=== PATIENT | female | born 2000 | race Caucasian/White ===

== ENCOUNTER 2020-10-22 06:26 | Outpatient (REF) | payer OTHER, SELFPAY | END 2020-10-22 06:27 | disposition home or self-care (01) | LOC: HO.LAB 06:26 | PROVIDERS: PCP Internal Medicine; Visit Provider Internal Medicine | DX: Z20.828 Contact with and (suspected) exposure to other viral communicable diseases (principal) | CPT/HCPCS: C9803; U0003 ==

== ENCOUNTER 2020-12-23 17:04 | Outpatient (REF) | payer OTHER, SELFPAY ==
[2020-12-23 18:04] LABS: MANUAL DIFF FLAG NO
[2020-12-23 18:06] LABS: Basophils Percent Auto 0.5 % (0-2); Eosinophils Absolute Auto 0.1 X10*3/uL (0.0-0.4); Eosinophils Percent Auto 1.3 % (0-4); Hemoglobin 11.5 g/dl (12.0-16.0); Imm Gran Abs Auto 0.03 X10*3/uL (0.00-0.03); Imm Gran Pct Auto 0.4 % (0.0-0.4); Lymphocytes Absolute Auto 2.3 X10*3/uL (1.2-4.9); Lymphocytes Percent Auto 28.4 % (20-40); Mean Corpuscular HGB Conc 32.9 g/dl (31.0-35.0); Mean Corpuscular Hemoglobin 29.4 pg (27.0-33.0); Mean Corpuscular Volume 89.5 fL (80-98); Mean Platelet Volume 11.3 fL (9.4-12.3); Monocytes Absolute Auto 0.6 X10*3/uL (0.1-1.2); Monocytes Percent Auto 7.4 % (2-11); Neutrophils Absolute Auto 5.1 X10*3/uL (2.0-8.3); Platelet Count 302 X10*3/uL (160-400); Red Blood Count 3.91 X10*6/uL (4.20-5.50); Red Cell Distribution Width 12.6 % (11.0-16.0); White Blood Count 8.2 X10*3/uL (4.8-10.8)
[2020-12-23 18:32] LABS: Alanine Aminotransferase 32 U/L (0-31); Albumin Level 4.3 g/dL (3.5-5.0); Alkaline Phosphatase 86 U/L (39-117); Anion Gap 13 (12-20); Aspartate Amino Transferase 28 U/L (5-31); Bilirubin Total 0.2 mg/dL (0.0-1.0); Blood Urea Nitrogen 9 mg/dL (9-16); Carbon Dioxide 26 mmol/L (22-29); Chloride 106 mmol/L (96-108); Cholesterol 154 mg/dL; Estimated Glomerular Filt Rate > 60; Glucose Random 77 mg/dL (60-115); HDL Cholesterol 42 mg/dL; LDL Cholesterol Calculated 93 mg/dl; Potassium 4.6 mmol/L (3.3-5.1); Sodium 140 mmol/L (135-145); Total Protein 7.4 g/dL (6.5-8.0); Triglycerides 99 mg/dL
[2020-12-23 18:53] LABS: Free T4 (Free Thyroxine) 0.96 ng/dL (0.71-1.85); Thyroid Stimulating Hormone 1.08 uIU/mL (0.32-4.0)
[2020-12-23 19:09] LABS: Folate 14.7 ng/mL (> or = 4.0); Vitamin B12 452 pg/mL (200-900)
== END 2020-12-23 17:05 | disposition home or self-care (01) ==
LOC: HO.LAB 17:04
PROVIDERS: PCP Internal Medicine; Visit Provider Internal Medicine
DX: E66.9 Obesity, unspecified (principal); E78.00 Pure hypercholesterolemia, unspecified
CPT/HCPCS: 36415; 80053; 80061; 82607; 82746; 84439; 84443; 85025

== ENCOUNTER 2022-07-11 13:48 | Outpatient (REF) | payer OTHER, SELFPAY ==
[2022-07-11 14:02] LABS: MANUAL DIFF FLAG NO
[2022-07-11 14:23] LABS: Basophils Percent Auto 0.3 % (0-2); Eosinophils Absolute Auto 0.2 X10*3/uL (0.0-0.4); Eosinophils Percent Auto 1.8 % (0-4); Hematocrit 35.5 % (37.0-47.0); Hemoglobin 11.7 g/dl (12.0-16.0); Imm Gran Abs Auto 0.04 X10*3/uL (0.00-0.03); Imm Gran Pct Auto 0.4 % (0.0-0.4); Immature Retic Fraction 18.4 % (3.0-15.9); Lymphocytes Absolute Auto 2.3 X10*3/uL (1.2-4.9); Mean Corpuscular Hemoglobin 28.2 pg (27.0-33.0); Mean Corpuscular Volume 85.5 fL (80.0-98.0); Mean Platelet Volume 11.2 fL (9.4-12.3); Monocytes Absolute Auto 0.7 X10*3/uL (0.1-1.2); Monocytes Percent Auto 7.2 % (2-11); Neutrophils Absolute Auto 6.4 x10*3/uL (2.0-8.3); Neutrophils Percent Auto 66.3 % (45-73); Platelet Count 312 X10*3/uL (160-400); Red Blood Count 4.15 X10*6/uL (4.20-5.50); Red Cell Distribution Width 13.2 % (11.0-16.0); Retic HGB Equivalent 31.6 pg (30.0-35.0); Reticulocyte Percent 1.5 % (0.5-1.8); Reticulocytes Absolute 0.063 X10*6/uL (0.026-0.095); White Blood Count 9.6 X10*3/uL (4.8-10.8)
[2022-07-11 14:48] LABS: Alanine Aminotransferase 9 U/L (0-31); Albumin Level 3.7 g/dL (3.5-5.0); Alkaline Phosphatase 72 U/L (39-117); Anion Gap 15 (12-20); Aspartate Amino Transferase 10 U/L (5-31); Bilirubin Total 0.3 mg/dL (0.0-1.0); Blood Urea Nitrogen 5 mg/dL (9-16); Calcium 8.3 mg/dL (8.4-10.2); Carbon Dioxide 22 mmol/L (22-29); Chloride 111 mmol/L (96-108); Estimated Glomerular Filt Rate > 60; Glucose Random 85 mg/dL (60-115); Iron 43 mcg/dL (30-160); Percent Iron Saturation 10 % (15-50); Potassium 4.7 mmol/L (3.3-5.1); Sodium 143 mmol/L (135-145); Total Iron Binding Capacity 419 mcg/dL (228-428); Total Protein 6.9 g/dL (6.5-8.0); Unsaturated Iron Binding 376 ug/dL
[2022-07-11 15:09] LABS: Ferritin 7 ng/mL (10-122); Free T4 (Free Thyroxine) 1.01 ng/dL (0.71-1.85); Thyroid Stimulating Hormone 1.12 uIU/mL (0.32-4.0)
[2022-07-11 15:21] LABS: Vitamin B12 230 pg/mL (200-900)
== END 2022-07-11 13:49 | disposition home or self-care (01) ==
LOC: HO.LAB 13:48
PROVIDERS: PCP Internal Medicine; Visit Provider Internal Medicine
DX: D64.9 Anemia, unspecified (principal)
CPT/HCPCS: 36415; 80053; 82607; 82728; 82746; 83540; 84439; 84443; 85025; 85045

== ENCOUNTER 2023-05-08 16:13 | Outpatient (REF) | payer OTHER, SELFPAY ==
[2023-05-08 16:22] LABS: MANUAL DIFF FLAG NO
[2023-05-08 18:15] LABS: Basophils Percent Auto 0.4 % (0-2); Eosinophils Absolute Auto 0.1 X10*3/uL (0.0-0.4); Eosinophils Percent Auto 1.2 % (0-4); Hematocrit 39.1 % (37.0-47.0); Imm Gran Abs Auto 0.04 X10*3/uL (0.00-0.03); Imm Gran Pct Auto 0.5 % (0.0-0.4); Lymphocytes Absolute Auto 1.8 X10*3/uL (1.2-4.9); Lymphocytes Percent Auto 22.3 % (20-40); Mean Corpuscular HGB Conc 33.2 g/dl (31.0-35.0); Mean Corpuscular Hemoglobin 29.7 pg (27.0-33.0); Mean Corpuscular Volume 89.3 fL (80.0-98.0); Mean Platelet Volume 11.3 fL (9.4-12.3); Monocytes Absolute Auto 0.6 X10*3/uL (0.1-1.2); Monocytes Percent Auto 6.9 % (2-11); Neutrophils Absolute Auto 5.5 x10*3/uL (2.0-8.3); Neutrophils Percent Auto 68.7 % (45-73); Platelet Count 305 X10*3/uL (160-400); Red Blood Count 4.38 X10*6/uL (4.20-5.50); Red Cell Distribution Width 12.7 % (11.0-16.0); Retic HGB Equivalent 36.1 pg (30.0-35.0); Reticulocyte Percent 1.3 % (0.5-1.8); Reticulocytes Absolute 0.057 X10*6/uL (0.026-0.095); White Blood Count 8.1 X10*3/uL (4.8-10.8)
[2023-05-08 19:10] LABS: Alanine Aminotransferase 8 U/L (0-31); Albumin Level 4.1 g/dL (3.5-5.0); Alkaline Phosphatase 69 U/L (39-117); Anion Gap 16 (12-20); Aspartate Amino Transferase 14 U/L (5-31); Bilirubin Total 0.6 mg/dL (0.0-1.0); Blood Urea Nitrogen 6 mg/dL (9-16); Calcium 9.7 mg/dL (8.4-10.2); Carbon Dioxide 20 mmol/L (22-29); Chloride 107 mmol/L (96-108); Estimated Glomerular Filt Rate > 60; Glucose Random 89 mg/dL (60-115); Iron 136 mcg/dL (30-160); Percent Iron Saturation 42 % (15-50); Potassium 3.8 mmol/L (3.3-5.1); Sodium 139 mmol/L (135-145); Total Iron Binding Capacity 326 mcg/dL (228-428); Total Protein 7.6 g/dL (6.5-8.0); Unsaturated Iron Binding 190 ug/dL
[2023-05-08 19:24] LABS: Ferritin 21 ng/mL (10-122); Thyroid Stimulating Hormone 0.46 uIU/mL (0.32-4.0)
[2023-05-08 19:39] LABS: Folate 13.9 ng/mL (> or = 4.0); Vitamin B12 394 pg/mL (200-900)
== END 2023-05-08 16:14 | disposition home or self-care (01) ==
LOC: HO.LAB 16:13
PROVIDERS: PCP Internal Medicine; Visit Provider Internal Medicine
DX: D50.9 Iron deficiency anemia, unspecified (principal); J45.909 Unspecified asthma, uncomplicated
CPT/HCPCS: 36415; 80053; 82607; 82728; 82746; 83540; 84443; 85025; 85045

== ENCOUNTER → 2023-06-07 12:53 | Outpatient (BNV) | payer OTHER, SELFPAY | PROVIDERS: PCP Internal Medicine; Referring Provider Internal Medicine; Visit Provider Internal Medicine | DX: D50.9 Iron deficiency anemia, unspecified (principal) | CPT/HCPCS: 99203 ==

== ENCOUNTER 2023-06-07 13:23 | Outpatient (REF) | payer OTHER, SELFPAY ==
--- NOTE | ~2023-06-07 | XR_ITS ---
EXAMINATION: XR CHEST CLINICAL INFORMATION: Asthma COMPARISON: September 30, 2009 TECHNIQUE: 2 views of the chest were obtained. FINDINGS: No significant abnormality is noted involving the heart, lungs, mediastinum, bony thorax or soft tissues. XR/XR chest 2V IMPRESSION: No acute disease.
== END 2023-06-07 13:24 | disposition home or self-care (01) ==
LOC: HO.XRAY 13:23
PROVIDERS: PCP Internal Medicine; Visit Provider Internal Medicine
DX: J45.909 Unspecified asthma, uncomplicated (principal)
CPT/HCPCS: 71046

== ENCOUNTER → 2024-08-21 11:42 | Outpatient (BNVA) | payer OTHER, SELFPAY | PROVIDERS: PCP Internal Medicine; Visit Provider Internal Medicine | DX: Z00.00 Encounter for general adult medical examination without abnormal findings (principal); Z23 Encounter for immunization; E66.3 Overweight; D50.9 Iron deficiency anemia, unspecified; J45.909 Unspecified asthma, uncomplicated; F41.1 Generalized anxiety disorder; R55 Syncope and collapse; F90.9 Attention-deficit hyperactivity disorder, unspecified type | CPT/HCPCS: 90471; 90656; 96127; 99395 ==

== ENCOUNTER 2024-08-21 12:41 | Outpatient (AMB) | payer OTHER, SELFPAY ==
[2024-08-21 11:53] VITALS: BP 110/60; PULSE 110; O2SAT 98; BMI 27.0
--- NOTE | 2024-08-21 11:53 | MHC.PC.OV ---
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: No Allergies ibuprofen [From MOTRIN] Allergy (Severe, Verified 08/21/24 11:53) HIVES Medication List - Last Reconciled 08/21/24 by Chiquis Hutchinson MD albuterol sulfate 90 mcg/actuation (Proventil HFA) 2 puffs inhalation Q4-6H PRN albuterol sulfate 2.5 mg (3 mL) inhalation QID PRN atomoxetine 40 mg PO QAM buspirone 15 mg PO BID levonorgestrel-ethinyl estrad 0.15 mg-30 mcg (91) 1 tab PO DAILY Tobacco use date assessed: 08/21/24 Dental Screening Dental Screen Date: 08/21/24 Did you have a dental visit in the last 12 months?: No Did you have a dental problem in the last 6 months where you did not have access to dental care?: No Was dental information given to patient?: Patient has dentist HPI PE HPI Details 23-year-old overweight female with iron deficiency anemia asthma generalized anxiety disorder last seen in April last year patient is here for physical exam. Patient has been referred to Hematology Oncology and was seen last year due to syncopal episode. has had syncopeearly this year, states triggered by heat, ? exercises? eating most of the time 3x a day LMP 05/2024 [facility] Medical History (Updated 08/21/24 @ 12:46 by Chiquis Hutchinson MD) Obesity (BMI 30-39.9) Anemia Asthma Surgical History (Updated 06/07/23 @ 13:20 by Sis Dorman MD) H/O wisdom tooth extraction Family History Maternal Grandmother Myocardial infarct Paternal Grandfather CAD (coronary artery disease) Mother No problems noted. Father Alcohol abuse Sister No problems noted. Social History (Updated 08/21/24 @ 12:22 by Chiquis Hutchinson MD) Household Members: None Housing: Apartment Alcohol intake: current Comment: 3x a year 2 drinks Patient Tobacco Use Status: Never used Tobacco Years Smoked: pot smoking e-Cigarette/Vaping Use: Never Used Second Hand Smoke Exposure: No Substance Use Type: Marijuana service: No Current occupational status: employed Cognitive needs: No Hearing needs: No Vision needs: No Questionnaire PHQ-9 Over the last 2 weeks, how often have you been bothered by any of the following problems? 1. Little interest or pleasure in doing things: not at all 2. Feeling down, depressed, or hopeless: not at all 3. Trouble falling or staying asleep, or sleeping too much: not at all 4. Feeling tired or having little energy: not at all 5. Poor appetite or overeating: not at all 6. Feeling bad about yourself - or that you are a failure or have let yourself or your family down: not at all 7. Trouble concentrating on things, such as reading the newspaper or watching television: not at all 8. Moving or speaking so slowly that other people could have noticed. Or the opposite - being so fidgety or restless that you have been moving around a lot more than usual: not at all 9. Thoughts that you would be better off or of hurting yourself in some way: not at all Total score: 0 Depression Screening Interpretation: Negative Depression Screening Done: Yes Source: Developed by Drs. Davi Kaur, Lucy Peraza, Jonathan Beard and colleagues, with an educational eric from [employer]. Thrive Questionnaire Date Thrive assessed: 08/21/24 I am a: Patient What is your living situation today?: I have a steady place to live Within the past 12 months, did the food you bought not last and you didn't have the money to get more?: Never true Within the past 12 months, did you worry whether your food would run out before you got money to buy more?: Never true Do you have trouble paying for medicines?: No Do you have trouble getting transportation to medical appointments?: No Do you have trouble paying your heating and electricity bill?: No Do you have trouble taking care of your child, family member or friend?: No Do you have trouble with day-to-day activities such as bathing, preparing meals, shopping, managing finances, etc.?: No Are you currently unemployed and looking for a job?: No Are you interested in more education?: No THRIVE Score: 0 AUDIT C Alcohol Use Questionnaire (AUDIT-C) 1. How often do you have a drink containing alcohol?: Never 3. How often do you have six or more drinks on one occasion?: Never Total Score: 0 ADEN-7 AMB Questionnaire ADEN-7 Date ADEN - 7 assessed: 08/21/24 Feeling nervous, anxious, or on edge: 1 = Several days Not being able to stop or control worryin = Not at all Worrying too much about different things: 0 = Not at all Trouble relaxin = Not at all Being so restless that it is hard to sit still: 0 = Not at all Becoming easily annoyed or irritable: 0 = Not at all Feeling afraid as if something awful might happen: 0 = Not at all Total ADEN-7 score (0-4 normal; 5-9 mild; 10-14 moderate; 15-21 severe): 1 Source: Developed by Drs. Davi Kaur, Lucy Peraza, Jonathan Beard and colleagues, with an educational eric from [employer]. Review of Systems Const Denies poor appetite and Denies weakness Eyes Denies no additional complaints ENT Reports Normal hearing present, Denies dizziness, Denies nasal congestion, Denies tinnitus and Denies sore throat Card Denies chest pain, Denies syncope, Denies rapid heart rate and Denies dyspnea Resp Denies cough and Denies dyspnea GI Denies change in stool character, Reports constipation, Denies diarrhea, Denies nausea and Denies vomiting Denies urinary frequency, Denies difficulty voiding and Denies dysuria Neuro Reports Normal hearing present, Denies confusion, Denies dizziness, Denies syncope and Denies weakness Psych Denies confusion Physical exam (Primary Care) Vital Signs: Last Vital Signs Pulse 110 H 08/21/24 11:53 BP 110/60 08/21/24 11:53 Pulse Ox 98 08/21/24 11:53 Oxygen Delivery Method Room Air 08/21/24 11:53 BMI result Body Mass Index 27.0 Tobacco/Smoking Status: Tobacco use Status Tobacco use date assessed 08/21/24 08/21/24 11:54 Patient Tobacco Use Status Never used Tobacco 08/21/24 11:54 e-Cigarette/Vaping Use Never Used 08/21/24 11:54 PHQ-9: PHQ-9 Score PHQ-9: Total score 0 08/21/24 12:00 Depression Screening Interpretation: Negative Thrive Assessment: Date of Thrive Assessment Date Thrive assessed 08/21/24 08/21/24 12:00 Const General: No confusion Orientation/consciousness: No confusion HENMT Head: Yes normocephalic Ears: external ears normal and TM's normal bilaterally Face and sinus: Yes normal facial exam Mouth: moist mucous membranes Throat: Yes tonsils normal Eyes Conjunctivae: conjunctivae normal Pupils: Equal, round and reactive pupils present and Pupil accommodation reflex normal Direct Ophthalmoscopy: normal light reflex Neck Neck: No lymphadenopathy Thyroid: Thyroid normal Chest Chest palpation & inspection: normal inspection of the chest Resp Effort & Inspection: normal respiratory effort and no audible wheezes Auscultation: clear to auscultation bilaterally, no crackles, no wheezes and lung sounds not diminished Cardio Rate: regular rate Rhythm: regular rhythm Peripheral pulses: radial pulses present and dorsalis pedis present GI Palpation (GI): no masses Auscultation: normal bowel sounds and normoactive bowel sounds Rectal Exam - Female: deferred Skin General skin exam: no rashes or lesions noted Rashes: no rashes Neuro General: No confusion Cranial nerves: Yes Equal, round and reactive pupils present and Yes Normal hearing present Cognition (Neuro): normal cognition Gait exam (Neuro): Normal gait present Motor exam (neuro): 5/5 motor strength present throughout Deep tendon reflexes (DTR's): Right brachioradialis reflex intensity grade: 2+, Left brachioradialis reflex intensity grade: 2+, Right patellar reflex intensity grade: 2+ and Left patellar reflex intensity grade: 2+ Extrem General: No edema Office Procedures Flu Questionnaire Does the patient have a severe egg allergy?: No Does the patient have severe life threatening allergies?: No Does the patient have a fever or illness today?: No Has the patient ever had Guillain-[place] Syndrome?: No Has the patient ever had any past reaction to a flu shot?: No Immunizations Fluarix Triv [id number] (PF) 45 mcg (15 mcg x 3)/0.5 mL IM syringe Performing Provider: Chiquis Hutchinson MD [facility] Administered by: JACOB Aguilar on 10/10/24 12:06 Dose Route Admin Location Dispensed Lot Number Expiration Date NDC Family Program Specialist 0.5 mL IM Left Deltoid 0.5 mL [id number] 05/11/25 [id number] [employer] VIS Given Date VIS Provided VIS Publication Date 08/21/24 Single Vaccine 21 Eligibility Eligibility Date Funding Source Not [facility] Eligible 08/21/24 Private Coding Level of Care Code Est Pt Prev Care 18-39y([id number]) Diagnoses Annual physical exam Z00.00 Overweight (BMI 25.0-29.9) E66.3 Iron deficiency anemia, unspecified iron deficiency anemia type D50.9 Iron deficiency anemia type: unspecified iron deficiency Mild intermittent asthma without complication J45.20 Asthma severity: mild Asthma persistence: intermittent Asthma complication type: uncomplicated Generalized anxiety disorder F41.1 Near syncope R55 Attention deficit hyperactivity disorder (ADHD), unspecified ADHD type F90.9 Attention deficit-hyperactivity disorder type: unspecified Assessment & Plan Assessment & Plan (1) Annual physical exam: Code(s): Z00.00 - Encounter for general adult medical examination without abnormal findings Category: Medical Plan: Patient is advised to eat healthy, keep well hydrated, keep active and have adequate sleep. (2) Overweight (BMI 25.0-29.9): Code(s): E66.3 - Overweight Category: Medical Plan: Continue with diet and exercise (3) Iron deficiency anemia: Code(s): D50.9 - Iron deficiency anemia, unspecified Category: Medical Qualifiers: Iron deficiency anemia type: unspecified iron deficiency Qualified Code(s): D50.9 - Iron deficiency anemia, unspecified Plan: Resolved (4) Asthma: Code(s): J45.909 - Unspecified asthma, uncomplicated Category: Medical Qualifiers: Asthma severity: mild Asthma persistence: intermittent Asthma complication type: uncomplicated Qualified Code(s): J45.20 - Mild intermittent asthma, uncomplicated Plan: Continue with albuterol inhaler as needed (5) Generalized anxiety disorder: Comment: [facility] prison classification counselor Code(s): F41.1 - Generalized anxiety disorder Category: Medical Plan: Continue with counseling and therapy (6) Near syncope: Code(s): R55 - Syncope and collapse Category: Medical Plan: Patient had some anemia before but this has resolved and now continues to have some near syncopal episodes as well as syncopal episodes. (7) ADHD: Comment: Dr. Hood in [place], [place] Code(s): F90.9 - Attention-deficit hyperactivity disorder, unspecified type Category: Medical Qualifiers: Attention deficit-hyperactivity disorder type: unspecified Qualified Code(s): F90.9 - Attention-deficit hyperactivity disorder, unspecified type Plan: Patient is being followed up by Psychiatry and has been prescribed medications Orders: Orders Influenza [id number] Immunization Today Z23 - Encounter for immunization Complete Blood Count Auto Diff Today R55 - Syncope and collapse Thyroid Stimulating Hormone Today R55 - Syncope and collapse IRON PROFILE Today R55 - Syncope and collapse Vitamin B12 and Folate Today R55 - Syncope and collapse Vitamin D 25-OH Total Today R55 - Syncope and collapse Comprehensive Met. Panel Today R55 - Syncope and collapse Free T4 (Free Thyroxine) Today R55 - Syncope and collapse Lipid Panel Today E78.00 - Pure hypercholesterolemia, unspecified, R55 - Syncope and collapse Ferritin Today R55 - Syncope and collapse UA CC w/rflx Micro + Cult Today R30.0 - Dysuria, R55 - Syncope and collapse EEG electroencephalogram Today R55 - Syncope and collapse Referrals Neurology Referral R55 - Syncope and collapse
== END 2024-08-21 12:45 | disposition home or self-care (01) ==
PROVIDERS: PCP Internal Medicine; Visit Provider Internal Medicine
DX: Z00.00 Encounter for general adult medical examination without abnormal findings (principal); E66.3 Overweight; D50.9 Iron deficiency anemia, unspecified; J45.20 Mild intermittent asthma, uncomplicated; F41.1 Generalized anxiety disorder; R55 Syncope and collapse; F90.9 Attention-deficit hyperactivity disorder, unspecified type; Z23 Encounter for immunization

== ENCOUNTER 2024-10-02 07:56 | Outpatient (REF) | payer OTHER, SELFPAY ==
--- NOTE | 2024-10-02 07:58 | EEG_ITS ---
This is a 16-channel EEG with an EKG lead. The patient is reported awake during the tracing. Background EEG rhythm is 8-10 hertz, 5-20 microvolt posteriorly and lower amplitude fast anteriorly. Photic stimulation does not produce any significant driving. Some lead and muscle artifacts are noted. Hyperventilation is not performed. Cardiac lead does not reveal any significant abnormality. No sharp wave spikes or paroxysmal tendency noted. IMPRESSION: No significant abnormality noted on this EEG. MD SIERRA Bowman/DONALDO / [id number]
[2024-10-02 09:28] LABS: MANUAL DIFF FLAG NO
[2024-10-02 09:49] LABS: Basophils Percent Auto 0.3 % (0-2); Eosinophils Absolute Auto 0.1 X10*3/uL (0.0-0.4); Eosinophils Percent Auto 2.1 % (0-4); Hematocrit 36.4 % (37.0-47.0); Hemoglobin 12.6 g/dl (12.0-16.0); Imm Gran Abs Auto 0.03 X10*3/uL (0.00-0.03); Imm Gran Pct Auto 0.4 % (0.0-0.4); Lymphocytes Absolute Auto 2.3 X10*3/uL (1.2-4.9); Lymphocytes Percent Auto 33.7 % (20-40); Mean Corpuscular HGB Conc 34.6 g/dl (31.0-35.0); Mean Corpuscular Hemoglobin 30.6 pg (27.0-33.0); Mean Corpuscular Volume 88.3 fL (80.0-98.0); Mean Platelet Volume 9.9 fL (9.4-12.3); Monocytes Absolute Auto 0.3 X10*3/uL (0.1-1.2); Monocytes Percent Auto 4.6 % (2-11); Neutrophils Percent Auto 58.9 % (45-73); Platelet Count 309 X10*3/uL (160-400); Red Blood Count 4.12 X10*6/uL (4.20-5.50); Red Cell Distribution Width 12.4 % (11.0-16.0); White Blood Count 6.8 X10*3/uL (4.8-10.8)
[2024-10-02 10:12] LABS: Appearance Urine Clear; Color Urine Yellow; Glucose Urine UA Negative (Negative); Leukocyte Esterase Urine Small (1+) (Negative); Nitrite Urine Negative (Negative); PH 5.5 (5.0-9.0); UMIC TRIGGER UACC YES; Urine Blood Negative (Negative); Urine Ketones Negative (Negative); Urine Protein Negative (Neg-Trace)
[2024-10-02 10:32] LABS: Bacteria Urine None Seen (None Seen); Hyaline Casts Urine 0-2 /LPF (0-2); RBC Urine 0-2 /HPF (0-2); Squamous Epithelial Cell Urine 0-2 /HPF (0-2); UACC Culture Trigger YES
[2024-10-02 10:36] LABS: Alanine Aminotransferase 22 U/L (0-31); Albumin Level 3.8 g/dL (3.5-5.0); Alkaline Phosphatase 59 U/L (39-117); Anion Gap 11 (12-20); Aspartate Amino Transferase 30 U/L (5-31); Bilirubin Total 0.3 mg/dL (0.0-1.0); Blood Urea Nitrogen 6 mg/dL (9-16); Carbon Dioxide 24 mmol/L (22-29); Chloride 106 mmol/L (96-108); Cholesterol 157 mg/dL (<200); Estimated Glomerular Filt Rate > 60; Glucose Random 87 mg/dL (60-115); HDL Cholesterol 34 mg/dL (>40); Iron 118 mcg/dL (30-160); LDL Cholesterol Calculated 108 mg/dL (<100); Percent Iron Saturation 40 % (15-50); Sodium 137 mmol/L (135-145); Total Iron Binding Capacity 294 mcg/dL (228-428); Total Protein 7.1 g/dL (6.5-8.0); Triglycerides 75 mg/dL (<150); Unsaturated Iron Binding 176 ug/dL
[2024-10-02 10:39] LABS: Ferritin 27 ng/mL (10-122); Free T4 (Free Thyroxine) 1.11 ng/dL (0.71-1.85); Thyroid Stimulating Hormone 0.96 uIU/mL (0.32-4.0)
[2024-10-02 10:55] LABS: Folate 11.1 ng/mL (> or = 4.0); Vitamin B12 333 pg/mL (200-900)
== END 2024-10-02 07:57 | disposition home or self-care (01) ==
LOC: HO.NEURO 07:56
PROVIDERS: PCP Internal Medicine; Visit Provider Internal Medicine
DX: R55 Syncope and collapse (principal); E78.00 Pure hypercholesterolemia, unspecified
CPT/HCPCS: 36415; 80053; 80061; 81001; 81003; 82306; 82607; 82728; 82746; 83540; 84439; 84443; 85025; 87086; 95816

== ENCOUNTER 2024-12-10 09:26 | Outpatient (AMB) | payer OTHER, SELFPAY ==
--- NOTE | 2024-12-10 09:33 | A.OFFPC_ITS ---
Vital Signs 3 12/10/24 09:35 Height 4 ft 10 in Weight 131 lb 8 oz BMI 27.5 BP 110/66 Blood Pressure Location Lt brachial Position Sitting Pulse 121 H Pulse Source Pulse Oximeter Temp 96.9 F Temp Source Skin Pulse Oximetry (%) 100 Oxygen Delivery Method Room Air Intake Visit Reasons: 3 month f/u Intake Note: Patient is here to follow up on ADHD, Asthma. Sales Representative Printing Paper Required: No Home Visits Nurse: Not Required per policy Accompanied by: Self / Same As Patient Allergies ibuprofen [From MOTRIN] Allergy (Severe, Verified 12/10/24 09:34) HIVES Medication List - Last Reconciled 12/10/24 by Janine Pearson PA-C albuterol sulfate 2.5 mg (3 mL) inhalation QID PRN albuterol sulfate 90 mcg/actuation 2 puffs inhalation Q4-6H PRN atomoxetine 40 mg PO QAM buspirone 15 mg PO BID levonorgestrel-ethinyl estrad 0.15 mg-30 mcg (91) 1 tab PO DAILY Tobacco use date assessed: 12/10/24 Dental Screening Dental Screen Date: 12/10/24 Did you have a dental visit in the last 12 months?: No Did you have a dental problem in the last 6 months where you did not have access to dental care?: No Was dental information given to patient?: Patient has dentist HPI 3 month f/u 2 HPI0 Details 23-year-old female with past medical his tory of iron-deficiency anemia, asthma, generalized anxiety disorder last seen 08/2024 coming in for follow up. In review of the notes, patient was being evaluated for syncopal episode had EEG completed which was negative and was referred to Neurology for presyncopal episodes. Patient tells us today she saw her neurologist in September was advised to have a 24 hour EEG completed and follow up afterwards. Since her last appointment she has not had any further episodes of syncope or presyncopal episodes. She feels her ADHD she and asthma has been well managed. She does have a concern of moles on the side of her neck that has been growing over the last several months. She also has a lesion on the back of her right calf that is not painful has not been growing but has been present since August and is occasionally itchy. [facility] Medical History (Updated 12/10/24 @ 09:53 by Janine Pearson PA-C) Obesity (BMI 30-39.9) Anemia Asthma Surgical History H/O wisdom tooth extraction Family History Maternal Grandmother Myocardial infarct Paternal Grandfather CAD (coronary artery disease) Mother No problems noted. Father Alcohol abuse Sister No problems noted. Social History Household Members: None Housing: Apartment Alcohol intake: current Comment: 3x a year 2 drinks Patient Tobacco Use Status: Never used Tobacco Years Smoked: pot smoking e-Cigarette/Vaping Use: Never Used Second Hand Smoke Exposure: No Substance Use Type: Marijuana service: No Current occupational status: employed Cognitive needs: No Hearing needs: No Vision needs: No Questionnaire PHQ-9 Over the last 2 weeks, how often have you been bothered by any of the following problems? 1. Little interest or pleasure in doing things: not at all 2. Feeling down, depressed, or hopeless: not at all 3. Trouble falling or staying asleep, or sleeping too much: not at all 4. Feeling tired or having little energy: not at all 5. Poor appetite or overeating: not at all 6. Feeling bad about yourself - or that you are a failure or have let yourself or your family down: not at all 7. Trouble concentrating on things, such as reading the newspaper or watching television: not at all 8. Moving or speaking so slowly that other people could have noticed. Or the opposite - being so fidgety or restless that you have been moving around a lot more than usual: not at all 9. Thoughts that you would be better off or of hurting yourself in some way: not at all Total score: 0 Depression Screening Interpretation: Negative Depression Screening Done: Yes Source: Developed by Drs. Davi Kaur, Lucy Peraza, Jonathan Beard and colleagues, with an educational eric from [employer]. Thrive Questionnaire Date Thrive assessed: 12/10/24 I am a: Patient What is your living situation today?: I have a steady place to live Within the past 12 months, did the food you bought not last and you didn't have the money to get more?: Never true Within the past 12 months, did you worry whether your food would run out before you got money to buy more?: Never true Do you have trouble paying for medicines?: No Do you have trouble getting transportation to medical appointments?: No Do you have trouble paying your heating and electricity bill?: No Do you have trouble taking care of your child, family member or friend?: No Do you have trouble with day-to-day activities such as bathing, preparing meals, shopping, managing finances, etc.?: No Are you currently unemployed and looking for a job?: No Are you interested in more education?: No Please select the resources that you would like help with: None Currently or been in a relationship where the following occur: No concerns reported THRIVE Score: 0 AUDIT C Alcohol Use Questionnaire (AUDIT-C) 1. How often do you have a drink containing alcohol?: Never Total Score: 0 ADEN-7 AMB Questionnaire ADEN-7 Date ADEN - 7 assessed: 12/10/24 Feeling nervous, anxious, or on edge: 1 = Several days (has Therapist) Not being able to stop or control worryin = Not at all Worrying too much about different things: 0 = Not at all Trouble relaxin = Not at all Being so restless that it is hard to sit still: 0 = Not at all Becoming easily annoyed or irritable: 0 = Not at all Feeling afraid as if something awful might happen: 0 = Not at all Total ADEN-7 score (0-4 normal; 5-9 mild; 10-14 moderate; 15-21 severe): 1 Source: Developed by Drs. Davi Kaur, Lucy Peraza, Jonathan Beard and colleagues, with an educational eric from [employer]. Review of Systems Const Denies body aches, Denies chills and Denies fever(s) Eyes Reports no additional complaints ENT Reports no additional complaints and Denies dizziness Card Denies chest pain, Denies syncope, Denies irregular heart rhythm, Denies leg edema, Reports lightheadedness (Occasionally) and Denies dyspnea Resp Denies dyspnea GI Reports no additional complaints Reports no additional complaints Musc Reports no additional complaints Skin/Breast Reports as per HPI Neuro Denies dizziness and Denies syncope Physical exam (Primary Care) Tobacco/Smoking Status: Tobacco use Status Tobacco use date assessed 08/21/24 08/21/24 11:54 Patient Tobacco Use Status Never used Tobacco 08/21/24 12:22 e-Cigarette/Vaping Use Never Used 08/21/24 12:22 Depression Screening Interpretation: Negative Thrive Assessment: Date of Thrive Assessment Date Thrive assessed 08/21/24 08/21/24 12:00 Currently or been in a relationship where the following occur: No concerns reported Const General: cooperative, healthy appearing, comfortable and no acute distress Orientation/consciousness: patient oriented x3 HENMT Head: Yes normocephalic Ears: hearing grossly normal bilaterally General nose exam: Normal external nose present Eyes General: appearance normal, both eyes and all related structures Conjunctivae: conjunctivae normal Neck Neck: Yes full ROM and Yes no lymphadenopathy Resp Effort & Inspection: normal respiratory effort Auscultation: clear to auscultation bilaterally, no crackles, no rales, no rhonchi and no wheezes Cardio Rate: regular rate Rhythm: regular rhythm Skin General skin exam: no rashes or lesions noted Full body images: 2 1. Erythematous raised lesion without underlying erythema, warmth or swelling. 2. Multiple, raised, small atypical nevi Neuro General: patient oriented x3 Gait exam (Neuro): Normal gait present Extrem General: Yes normal to inspection, Yes full ROM and No edema Psych Affect: normal affect Attitude: cooperative Insight: Good insight present (Psych) Judgement: Good judgement present (Psych) Coding Level of Care Code Est Pt Level 3 (91327) Diagnoses Atypical nevi D22.9 Attention deficit hyperactivity disorder (ADHD), unspecified ADHD type F90.9 Attention deficit-hyperactivity disorder type: unspecified Overweight (BMI 25.0-29.9) E66.3 Mild intermittent asthma without complication J45.20 Asthma severity: mild Asthma persistence: intermittent Asthma complication type: uncomplicated Near syncope R55 Assessment & Plan Assessment & Plan (1) Atypical nevi: Code(s): D22.9 - Melanocytic nevi, unspecified Category: Medical Plan: Patient has a presence of atypical nevi that have been growing on the left side of the neck and on the back of the calf. Recommend Dermatology referral for further evaluation and possible biopsy. (2) ADHD: Comment: Dr. Hood in [place], [place] Code(s): F90.9 - Attention-deficit hyperactivity disorder, unspecified type Category: Medical Qualifiers: Attention deficit-hyperactivity disorder type: unspecified Qualified Code(s): F90.9 - Attention-deficit hyperactivity disorder, unspecified type Plan: Feels her ADHD is well managed with the atomoxetine continue to follow with psychiatrist (3) Overweight (BMI 25.0-29.9): Code(s): E66.3 - Overweight Category: Medical Plan: Healthy diet and regular exercise is encouraged. (4) Asthma: Code(s): J45.909 - Unspecified asthma, uncomplicated Category: Medical Qualifiers: Asthma severity: mild Asthma persistence: intermittent Asthma complication type: uncomplicated Qualified Code(s): J45.20 - Mild intermittent asthma, uncomplicated Plan: Asthma currently controlled on present medications. Continue on albuterol as needed. Avoid triggers such as allergies. (5) Near syncope: Code(s): R55 - Syncope and collapse Category: Medical Plan: Patient currently following with Neurology advised to undergo 24 hour EEG with a follow up afterwards. Advised patient to follow up in 3 months in our office to review the neurology notes in the EEG. Patient has not any symptoms in the last several months and she will continue to monitor her symptoms. Plan This note was constructed using voice recognition software. While every effort has been made to ensure accuracy and clerk secretary, still areas may have been included sometimes these areas may affect the content or meeting of the given symptoms. Total time spent caring for the patient today was 20 minutes. This includes time spent before the visit reviewing the chart, time spent during the visit, and time spent after the visit and documentation. Orders: Referrals 2 Dermatology Referral D22.9 - Melanocytic nevi, unspecified Medications: New 2 cholecalciferol (vitamin D3) 25 mcg PO DAILY 90 caps 3RF
[2024-12-10 09:35] VITALS: BP 110/66; PULSE 121; TEMP 36.1; O2SAT 100; BMI 27.5
--- OUTSIDE RECORDS SUMMARY | 2024-12-10 10:53 | XMS_ITS | Clinical Summary ---
Author Organization [facility] Address [address] [place] [address] Care Team Providers Care Medical Specialist Name Role Phone Chiquis Vincent MD Primary Care Provider [phone] Encounters Date Type Department Care Team Description 10/27/2024 [facility] Neurodiagnostic [address] [place] [phone] Rubi Rojas MD Epilepsy, unspecified, not intractable, without status epilepticus (CMS/HCC) 10/24/2024 [facility]diagn[facility] [address] [place] [phone] Rubi Rojas MD Epilepsy, unspecified, not intractable, without status epilepticus (CMS/HCC) 10/23/2024 [facility] [address] [place] [phone] Rubi Rojas MD Epilepsy, unspecified, not intractable, without status epilepticus (CMS/HCC) from Last 3 Months Surgical History Surgery Date Site/Laterality Comments WISDOM TOOTH EXTRACTION PROCEDURE: HISTORICAL WISDOM TEETH EXTRACTION Medical History Medical History Date Comments Dysmenorrhea DX:Dysmenorrhea Mild intermittent asthma, uncomplicated DX:Mild intermittent asthma, uncomplicated Family History Medical History Relation Name Comments Breast cancer Neg Hx Ovarian cancer Neg Hx Uterine cancer Neg Hx Relation Name Status Comments Father Alive Maternal Grandfather Alive Maternal Grandmother Alive Mother Alive Paternal Grandfather Paternal Grandmother Alive Sister Alive Social History Tobacco Use Types Packs/Day Years Used Date Smoking Tobacco: Never Smokeless Tobacco: Never Alcohol Use Standard Drinks/Week Comments Never 0 (1 standard drink = 0.6 oz pur e alcohol) Sex and Gender Information Value Date Recorded Sex Assigned at Not on file Gender Identity Not on file Sexual Orientation Not on file Obstetrics History Last Filed Vital Signs Vital Sign Reading Time Taken Comments Blood Pressure 125/88 12/06/2023 1:32 PM EST Pulse 90 12/06/2023 1:32 PM EST Temperature - - Respiratory Rate - - Oxygen Saturation - - Inhaled Oxygen Concentration - - Weight 64.1 kg (141 lb 6.4 oz) 12/06/2023 1:32 P M EST Height 147.3 cm (4' 10 ) 12/06/2023 1:32 PM EST Body Mass Index 29.55 12/06/2023 1:32 PM EST Plan of Treatment Upcoming Encounters Date Type Department Care Team (Late st Contact Info) Description 01/21/2025 10:00 AM EDT Appointment [facility] Neurodiagnostic [address] [place] [phone] 01/22/2025 10:00 AM EDT Appointment [facility] Neurodiagnostic [address] [place] [phone] 01/23/2025 10:00 AM EDT Appointment [facility]diagn[facility] [address] [place] [phone] Health Maintenance Due Date Last Done Comments Gonorrhea/Chlamydia Screening 2000 HPV Vaccines (1 - 3-dose series) 2015 DTaP,Tdap,and Td Vaccines (1 - Tdap) 2019 Hepatitis B Vaccines (1 of 3 - 19+ 3-dose series) 2019 Depression Screening 10/22/2022 HIV Screening 10/22/2022 Hepatitis C Screening 10/22/2022 Social Influencers of Health Screening 10/22/2022 COVID-19 Vaccine ( - 2023-2 5 season) 2024 Influenza Vaccine (#1) 2024 Cervical Cancer Screening: P ap Smear 12/06/2026 12/06/2023 HIB Vaccines Aged Out No longer eligi ble based on patient's age to complete this topic Hepatitis A Vaccines Aged Out No long er eligible based on patient's age to complete this topic IPV Vaccines Aged Out No longer eligi ble based on patient's age to complete this topic MMR Vaccines Aged Out No longer eligi ble based on patient's age to complete this topic Meningococcal ACWY Vaccine Aged Out N o longer eligible based on patient's age to complete this topic Pneumococcal Vaccine: Pediat rics (0 to 5 Years) and At-Risk Patients (6 to 64 Years) Aged Out No longer eligi ble based on patient's age to complete this topic RSV Immunization Patients Un jamee 20 months Aged Out No longer eligible b ased on patient's age to complete this topic Varicella Vaccines Aged Out No longer eligible based on patient's age to complete this topic Procedures Procedure Name Priority Date/Time Associated Diagnosis Comments PAP SMEAR Routine 12/06/2023 from Last 3 Months or Most Recently Relevant to Health Maintenance Results * Pap smear (12/06/2023) 12/06/2023 Narrative HISTORICAL TESTING LAB RESULTING AGENCY - 12/14/2023 4:45 PM EST [id number] THINPREP PAP, IMAGED: NEGATIVE FOR SQUAMOUS INTRAEPITHELIAL LESION AND MALIGNANCY . KENDRA WALKER(ASCP) (CASE ELECTRONICALLY SIGNED 12 14 2023) ADEQUACY: SATISFACTORY ENDOCERVICAL/TRANSFORMATION ZONE COMPONENT ABSENT. SOURCE: THINPREP PAP HPV IF ASCUS, CERVICAL, IMAGED CLINICAL INFORMATION: HPV IF DIAGNOSIS OF ASCUS. [Z01.419] Nina Juan CHASE LAB CYTOLOGY ORDERAB LES HISTORICAL TESTING LAB RESULTING AGENCY from Last 3 Months or Most Recently Relevant to Health Maintenance Care Teams Medical Specialist Relationship Specialty Start Date End Date Chiquis Vincent MD [address] [place] [address] [address] [facility] [place] [address] PCP - General Internal Medicine 08/16/21
== END 2024-12-10 10:05 | disposition home or self-care (01) ==
PROVIDERS: PCP Internal Medicine
DX: D22.9 Melanocytic nevi, unspecified (principal); F90.9 Attention-deficit hyperactivity disorder, unspecified type; E66.3 Overweight; J45.20 Mild intermittent asthma, uncomplicated; R55 Syncope and collapse

== ENCOUNTER → 2024-12-10 09:26 | Outpatient (BNVA) | payer OTHER, SELFPAY | PROVIDERS: PCP Internal Medicine | DX: D22.9 Melanocytic nevi, unspecified (principal); F90.9 Attention-deficit hyperactivity disorder, unspecified type; E66.3 Overweight; J45.20 Mild intermittent asthma, uncomplicated; R55 Syncope and collapse | CPT/HCPCS: 99212 ==

== ENCOUNTER 2025-03-11 10:07 | Outpatient (AMB) | payer OTHER, SELFPAY ==
--- NOTE | 2025-03-11 10:10 | MHC.PC.OV ---
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 Billiard Table Required: No Accompanied by: Self / Same As Patient Allergies ibuprofen [From MOTRIN] Allergy (Severe, Verified 03/11/25 10:28) HIVES Medication List - Last Reconciled 03/11/25 by Janine Pearson PA-C albuterol sulfate 2.5 mg (3 mL) inhalation QID PRN albuterol sulfate 90 mcg/actuation 2 puffs inhalation Q4-6H PRN atomoxetine 40 mg PO QAM buspirone 15 mg PO BID cholecalciferol (vitamin D3) 25 mcg PO DAILY levonorgestrel-ethinyl estrad 0.15 mg-30 mcg (91) 1 tab PO DAILY Tobacco use date assessed: 12/10/24 Dental Screening Dental Screen Date: 12/10/24 HPI 3 Month F/U HPI Details 24-year-old female with past medical history of iron-deficiency anemia, asthma, generalized anxiety disorder last seen 11/2024 coming in for follow up. She was seen by Neurology 10/2025 for dizziness and blurred vision recommended 48 hour ambulatory EEG and appointment to follow up. Patient completed 48 hour ambulatory EEG revealed no significant abnormality. Presenting with follow-up on neurological concerns and management of ADHD. She experiences episodes characterized by dizziness, weakness, vision changes, and other vasovagal-like symptoms occurring infrequently (1-3 times a year); last episode noted in August or September. No recent episodes since the last visit. Neurologist previously consulted; no daily medication was recommended due to infrequency; last EEG results were non-significant. She also mentions over the last week having increased urinary hesitancy without any other symptoms. [facility] Medical History Obesity (BMI 30-39.9) Anemia Asthma Surgical History H/O wisdom tooth extraction Family History Maternal Grandmother Myocardial infarct Paternal Grandfather CAD (coronary artery disease) Mother No problems noted. Father Alcohol abuse Sister No problems noted. Social History Household Members: None Housing: Apartment Alcohol intake: current Comment: 3x a year 2 drinks Patient Tobacco Use Status: Never used Tobacco Years Smoked: pot smoking e-Cigarette/Vaping Use: Never Used Second Hand Smoke Exposure: No Substance Use Type: Marijuana service: No Current occupational status: employed Cognitive needs: No Hearing needs: No Vision needs: No Questionnaire Thrive Questionnaire Date Thrive assessed: 12/10/24 I am a: Patient What is your living situation today?: I have a steady place to live Within the past 12 months, did the food you bought not last and you didn't have the money to get more?: Never true Within the past 12 months, did you worry whether your food would run out before you got money to buy more?: Never true Do you have trouble paying for medicines?: No Do you have trouble getting transportation to medical appointments?: No Do you have trouble paying your heating and electricity bill?: No Do you have trouble taking care of your child, family member or friend?: No Do you have trouble with day-to-day activities such as bathing, preparing meals, shopping, managing finances, etc.?: No Are you currently unemployed and looking for a job?: No Are you interested in more education?: No Please select the resources that you would like help with: None Currently or been in a relationship where the following occur: No concerns reported THRIVE Score: 0 ADEN-7 AMB Questionnaire ADEN-7 Date ADEN - 7 assessed: 12/10/24 Feeling nervous, anxious, or on edge: 1 = Several days (has Therapist) Not being able to stop or control worryin = Not at all Worrying too much about different things: 0 = Not at all Trouble relaxin = Not at all Being so restless that it is hard to sit still: 0 = Not at all Becoming easily annoyed or irritable: 0 = Not at all Feeling afraid as if something awful might happen: 0 = Not at all Total ADEN-7 score (0-4 normal; 5-9 mild; 10-14 moderate; 15-21 severe): 1 Source: Developed by Drs. Davi Kaur, Lucy Peraza, Jonathan Beard and colleagues, with an educational eric from [employer]. Review of Systems Const Denies body aches, Denies chills, Denies fever(s), Denies headache(s) and Denies poor appetite Eyes Reports no additional complaints ENT Denies dizziness and Denies headache(s) Card Denies chest pain, Denies syncope, Denies lightheadedness and Denies dyspnea Resp Denies dyspnea GI Denies nausea and Denies vomiting Reports urinary hesitancy Musc Reports no additional complaints and Denies abnormal gait Skin/Breast Reports system reviewed and no additional complaints, except as documented Neuro Denies abnormal gait, Denies dizziness, Denies syncope and Denies headache(s) Psych Reports no additional complaints Physical exam (Primary Care) Vital Signs: Last Vital Signs Temp 97.6 F 03/11/25 10:11 Pulse 112 H 03/11/25 10:11 BP 118/82 03/11/25 10:11 Pulse Ox 98 03/11/25 10:11 Oxygen Delivery Method Room Air 03/11/25 10:11 BMI result Body Mass Index 26.7 Tobacco/Smoking Status: Tobacco use Status Tobacco use date assessed 12/10/24 03/11/25 10:21 Patient Tobacco Use Status Never used Tobacco 03/11/25 10:21 e-Cigarette/Vaping Use Never Used 03/11/25 10:21 Thrive Assessment: Date of Thrive Assessment Date Thrive assessed 12/10/24 03/11/25 10:21 Currently or been in a relationship where the following occur: No concerns reported Const General: cooperative, healthy appearing, comfortable and no acute distress Orientation/consciousness: patient oriented x3 HENMT Head: Yes normocephalic Ears: hearing grossly normal bilaterally General nose exam: Normal external nose present Eyes General: appearance normal, both eyes and all related structures Conjunctivae: conjunctivae normal Neck Neck: Yes full ROM and Yes no lymphadenopathy Resp Effort & Inspection: normal respiratory effort Auscultation: clear to auscultation bilaterally, no crackles, no rales, no rhonchi and no wheezes Cardio Rate: regular rate Rhythm: regular rhythm Skin General skin exam: no rashes or lesions noted Full body images: 1. Atypical nevi Neuro General: patient oriented x3 Gait exam (Neuro): Normal gait present Extrem General: Yes normal to inspection, Yes full ROM and No edema Psych Affect: normal affect Attitude: cooperative Insight: Good insight present (Psych) Judgement: Good judgement present (Psych) Results AMB Urinalysis Dipstick UR Leukocytes Negative Last Edit by Dayna Escamilla, ISSAC on 03/11/25 10:44 UR Nitrite Negative Last Edit by Dayna Escamilla, INCOME TAX EXPERT on 03/11/25 10:44 UR Urobilinogen Normal Last Edit by Dayna Escamilla, INCOME TAX EXPERT on 03/11/25 10:44 UR Protein Negative Last Edit by Dayna Escamilla, INCOME TAX EXPERT on 03/11/25 10:44 UR Ph 8.0 Last Edit by Dayna Escamilla, INCOME TAX EXPERT on 03/11/25 10:44 UR Blood Negative Last Edit by Dayna Escamilla, INCOME TAX EXPERT on 03/11/25 10:44 UR Specific [place] 1.015 Last Edit by Dayna Escamilla, INCOME TAX EXPERT on 03/11/25 10:44 UR Ketone Negative Last Edit by Dayna Escamilla, INCOME TAX EXPERT on 03/11/25 10:44 UR Bilirubin Negative Last Edit by Dayna Escamilla, INCOME TAX EXPERT on 03/11/25 10:44 UR Glucose Negative Last Edit by Dayna Escamilla, INCOME TAX EXPERT on 03/11/25 10:44 Coding Level of Care Code Est Pt Level 3 (42526) Diagnoses Overweight (BMI 25.0-29.9) E66.3 Mild intermittent asthma without complication J45.20 Asthma severity: mild Asthma persistence: intermittent Asthma complication type: uncomplicated Near syncope R55 Attention deficit hyperactivity disorder (ADHD), unspecified ADHD type F90.9 Attention deficit-hyperactivity disorder type: unspecified Urinary hesitancy R39.11 Atypical nevi D22.9 Assessment & Plan Assessment & Plan (1) Overweight (BMI 25.0-29.9): Code(s): E66.3 - Overweight Category: Medical Plan: Healthy diet and regular exercise is encouraged. (2) Asthma: Code(s): J45.909 - Unspecified asthma, uncomplicated Category: Medical Qualifiers: Asthma severity: mild Asthma persistence: intermittent Asthma complication type: uncomplicated Qualified Code(s): J45.20 - Mild intermittent asthma, uncomplicated Plan: Asthma currently controlled on present medications. Continue on albuterol as needed. Avoid triggers such as allergies. (3) Near syncope: Code(s): R55 - Syncope and collapse Category: Medical Plan: Patient was recently seen by Neurology after 48 hour EEG was reviewed and negative. Patient was advised medications not appropriate at this time and she will continue to follow with her neurologist to be seen in 6 months. Patient has not any symptoms in the last several months and she will continue to monitor her symptoms. (4) ADHD: Comment: Dr. Hood in [place], [place] Code(s): F90.9 - Attention-deficit hyperactivity disorder, unspecified type Category: Medical Qualifiers: Attention deficit-hyperactivity disorder type: unspecified Qualified Code(s): F90.9 - Attention-deficit hyperactivity disorder, unspecified type Plan: Feels good on the atomoxetine. No symptoms at this time. (5) Urinary hesitancy: Code(s): R39.11 - Hesitancy of micturition Category: Medical Plan: Patient mentioning she has to concentrate more when she has to urinate but denies any urinary retention. Obtained urinalysis in the office today which was normal. Advised to increase fluid intake and reach out if symptoms persist. (6) Atypical nevi: Code(s): D22.9 - Melanocytic nevi, unspecified Category: Medical Plan: Atypical nevi of right lower calf awaiting dermatological evaluation at this time. Has not changed and no new symptoms. Plan During this visit, we confirmed the current management for the patient's neurological and ADHD conditions. No modifications were made to her management plan for her episodic episodes in coordination with her neurologist's previous recommendations. We continued her current ADHD treatment with atomoxetine, as the patient reported positive outcomes. For her dermatological concern, I provided her with options to expedite her access to dermatological services. She was advised on frequent calling for cancellations and given a list of alternate dermatologists. Additionally, we plan to review her physical health comprehensively during the upcoming physical exam set for August, allowing for ongoing monitoring and preventive care. This note was constructed using voice recognition software. While every effort has been made to ensure accuracy and supercalender operator, still areas may have been included sometimes these areas may affect the content or meeting of the given symptoms. Total time spent caring for the patient today was 20 minutes. This includes time spent before the visit reviewing the chart, time spent during the visit, and time spent after the visit and documentation. Patient was informed and verbally consented to the use of an ambient scribe for clinic note documentation during this visit. Orders: Orders AMB Urinalysis Dipstick Today Z13.9 - Encounter for screening, unspecified
[2025-03-11 10:11] VITALS: BP 118/82; PULSE 112; TEMP 36.4; O2SAT 98; BMI 26.7
--- OUTSIDE RECORDS SUMMARY | 2025-03-11 11:09 | XMS_ITS | Clinical Summary ---
Author Organization [facility] Address [address] [place] [phone] Phone Care Team Providers Care Line Lead Name Role Phone Chiquis Hutchinson MD Primary Care Provider [phone] Encounters Date Type Department Care Team Description 01/23/2025 10:00 AM EDT - 01/23/2025 11:59 PM EDT Hospital Encounter [facility] Neurodiagnostic [address] [place] [phone] Discharge Disposition: Home or Self Care 01/22/2025 10:00 AM EDT - 01/22/2025 11:59 PM EDT Hospital Encounter [facility] Neurodiagnostic [address] [place] [phone] Discharge Disposition: Home or Self Care 01/21/2025 10:00 AM EDT - 01/21/2025 11:59 PM EDT Hospital Encounter [facility] Neurodiagnostic [address] [place] [phone] Discharge Disposition: Home or Self Care from Last 3 Months Surgical History Surgery [...] drink = 0.6 oz pur e alcohol) Comments Unknown Sex and Gender Information Value Date Recorded Sex Assigned at Female 01/20/2025 6:16 AM EDT Legal Sex Female 12:52 PM EST Gender Identity Female 01/20/2025 6:16 AM EDT Sexual Orientation Straight 01/20/2025 6: 16 AM EDT Obstetrics History Last Filed Vital Signs Vital [...] 12/06/2023 1:32 PM EST Plan of Treatment Health Maintenance Due Date Last Done Comments Gonorrhea/Chlamydia Screening 2000 HPV Vaccines (1 - 3-dose series) 2015 Hepatitis B Vaccines (1 of 3 - 19+ 3-dose series) 2019 Depression Screening 10/22/2022 HIV Screening 10/22/2022 Hepatitis C Screening 10/22/2022 Social Influencers of Health Screening 10/22/2022 Cervical Cancer Screening: Pap Smear 12/06/2026 12/06/2023 DTaP,Tdap,and Td Vaccines (3 - Td or Tdap) 07/11/2032 07/11/2022, 06/12/2018 Meningococcal ACWY Vaccine Completed 06/12/2018 Meningococcal B Vaccine Completed 06/12/2018, 05/07 Influenza Vaccine Completed 08/21/2024, , 09/16/2019, Additional history exists COVID-19 Vaccine Completed 12/17/2024, 10/07/2022 HIB Vaccines Aged Out No longer eligi [...] age to complete this topic Pneumococcal Vaccine: Pediatrics (0 to 5 Years) and At-Risk Patients (6 to 64 Years) Aged Out No longer eligible based on patient's age to complete this topic RSV Immunization Patients Under 20 months Aged Out No longer eligible based on patient's age to complete this topic Varicella Vaccines Aged Out No longer eligible based on patient's age to complete this topic Procedures Procedure Name Priority Date/Time Associated Diagnosis Comments CONTINUOUS EEG Routine 01/23/2025 12:06 PM EDT Epilepsy, unspecified, not intractable, without status epilepticus (CMS/[facility] V24, CMS/[facility] V28) CONTINUOUS EEG Routine 01/22/2025 11:36 AM EDT Epilepsy, unspecified, not intractable, without status epilepticus (CMS/HCC V24, CMS/[facility] V28) CONTINUOUS EEG Routine 01/21/2025 2:35 PM EDT Epilepsy, unspecified, not intractable, without status epilepticus (CMS/HCC V24, CMS/[facility] V28) PAP SMEAR Routine 12/06/2023 from Last 3 Months or Most Recently Relevant to Health Maintenance Results * Continuous EEG (01/23/2025 12:06 PM EDT) Narrative Steve Raymond MD - 02/16/2025 3:19 PM EDT See report on first day us Rubi Rojas MD NEUROLOGY ORDERABLES Final Result * Continuous EEG (01/22/2025 11:36 AM EDT) Narrative Steve Raymond MD - 02/16/2025 3:20 PM EDT See report on first day us Rubi Rojas MD NEUROLOGY ORDERABLES Final Result * Continuous EEG (01/21/2025 2:35 PM EDT) Narrative Rubi Rojas MD - 02/02/2025 3:28 PM EDT This is a 16 channel 48-hour ambulatory EEG. ??Patient kept a diary and reported 1 episode of dizziness. ??Each day of EEG was separately reviewed and included wakefulness and sleep. ??During wakefulness, EEG was symmetric alpha posteriorly and lower amplitude faster anteriorly. ??Patient transition into sleep with different stages during both days. ??No EEG abnormality was noted during or around the episode of dizziness. ?? Otherwise, periods of generalized slowing that was somewhat more pronounced in the right hemisphere was noted. ??No definite sharp waves or spikes were seen. ??Cardiac lead did not reveal any significant abnormality. Impression: No significant abnormality noted in this EEG. ??Mild abnormality that was described above was nonspecific in nature and can occur with migraine. Rubi Rojas MD NEUROLOGY ORDERABLES Final Result * Pap smear (12/06/2023) 12/06/2023 Narrative HISTORICAL TESTING LAB RESULTING AGENCY - 12/14/2023 4:45 PM EST [id number] THINPREP PAP, IMAGED: NEGATIVE FOR SQUAMOUS INTRAEPITHELIAL LESION AND MALIGNANCY . BUDDY DOYLE , KENDRA(ASCP) (CASE ELECTRONICALLY SIGNED 12 14 2023) ADEQUACY: SATISFACTORY ENDOCERVICAL/TRANSFORMATION ZONE COMPONENT ABSENT. SOURCE: THINPREP PAP HPV IF ASCUS, CERVICAL, IMAGED CLINICAL INFORMATION: HPV IF DIAGNOSIS OF ASCUS. [Z01.419] Nina Martinez CNM LAB CYTOLOGY ORDERABLES Final R esult HISTORICAL TESTING LAB RESULTING AGENCY from Last 3 Months or Most Recently Relevant to Health Maintenance Insurance PLAN Care Teams Line Lead Relationship Specialty Start Date End Date Chiquis Hutchinson MD [address] [place] [address] [address] [facility] [place] [address] PCP - General Internal Medicine 08/16/21
== END 2025-03-11 10:51 | disposition home or self-care (01) ==
LOC: HO.HMCH 10:08
PROVIDERS: PCP Internal Medicine
DX: E66.3 Overweight (principal); J45.20 Mild intermittent asthma, uncomplicated; R55 Syncope and collapse; F90.9 Attention-deficit hyperactivity disorder, unspecified type; R39.11 Hesitancy of micturition; D22.9 Melanocytic nevi, unspecified; Z13.9 Encounter for screening, unspecified

== ENCOUNTER → 2025-03-11 10:07 | Outpatient (BNVA) | payer OTHER, SELFPAY | PROVIDERS: PCP Internal Medicine | DX: E66.3 Overweight (principal); Z68.26 Body mass index [BMI] 26.0-26.9, adult; J45.20 Mild intermittent asthma, uncomplicated; R55 Syncope and collapse; F90.9 Attention-deficit hyperactivity disorder, unspecified type; R39.11 Hesitancy of micturition; D22.71 Melanocytic nevi of right lower limb, including hip | CPT/HCPCS: 81002; 99212 ==

== ENCOUNTER 2025-08-12 12:11 | Outpatient (AMB) | payer OTHER, SELFPAY ==
--- NOTE | 2025-08-12 12:45 | MHC.OFFVIS ---
Intake Visit Reasons: 6 Months Allergies ibuprofen (From MOTRIN) Allergy (Severe, Verified 03/11/25 10:28) HIVES HPI Comments Details: 24 years old right-handed woman migraine. Initially seen in 2023. She had reported episodes of blurred vision and dizziness. They have been happening since around 2021. Frequency was about once or twice a year and random fashion with no obvious trigger. It could happen in different positions while she is walking or sitting. Her vision would start getting blurred from the side and then her whole vision would get blurred without altering her mind. With that, she would have a feeling of dizziness and sweating. Dizziness was described as sense of motion or unsteadiness. She would typically tried to sit down or lay down. Symptoms have lasted for about 15 min. not associated with any pain or headache. Routine EEG was ok. 48 hr EEG revealed periods of slowing slightly more pronounced on the right side. She was here stating that she was paying attention now and actually she was having headaches. There were happening about once every other week can would typically last for a day or so. She has tried Excedrin [id number] but that was causing heart racing type of feeling. Otherwise visual symptoms were not happening. [facility]LY [facility] Medical History (Updated 08/12/25 @ 12:53 by Rubi Rojas MD) Migraine Obesity (BMI 30-39.9) Anemia Asthma Surgical History H/O wisdom tooth extraction Family History Maternal Grandmother Myocardial infarct Paternal Grandfather CAD (coronary artery disease) Mother No problems noted. Father Alcohol abuse Sister No problems noted. Social History Household Members: None Housing: Apartment Alcohol intake: current Comment: 3x a year 2 drinks Patient Tobacco Use Status: Never used Tobacco Years Smoked: pot smoking e-Cigarette/Vaping Use: Never Used Second Hand Smoke Exposure: No Substance Use Type: Marijuana service: No Current occupational status: employed Cognitive needs: No Hearing needs: No Vision needs: No Physical Exam Neuro Other: Mental Status: Alert and oriented to person, place, and time. Normal attention. Normal spontaneous speech, fluency, and comprehension. No obvious issues with mood and memory. Affect is appropriate. Cranial Nerves: CN II: Visual miguel full to confrontation, visual acuity intact. CN III, IV, : Pupils equal, round, reactive to light and accommodation. Extraocular movements are normal. CN V: Facial sensation is normal. CN VII: Facial movements symmetrical. CN VIII: Hearing intact to bedside conversation is normal. CN IX, X: Palate elevates symmetrically. CN XI: Shoulder shrug and head turn symmetrical. CN XII: Tongue midline without atrophy or fasciculations. Motor: Bulk and tone normal in all extremities. No significant muscle weakness in arms and legs. No drift. Reflexes: Deep tendon reflexes 2+ and symmetric. Plantar response down-going bilaterally. Coordination: Xlczqw-zf-dirq and gjxa-am-pzmo testing normal. No dysmetria. Gait and Station: No obvious gait abnormality. No ataxia or instability. Sensory: Intact to light touch, pinprick, and vibration. Romberg is negative. Extrapyramidal: Full facial expressions and blinking. No rigidity. Movements are appropriate with no tremor or abnormality. Speech: Normal; no dysarthria or tremor. Assessment & Plan Assessment & Plan (1) Migraine: Comment: Meds tried: Excedrin, sumatriptan, allergic to Motrin, Code(s): G43.909 - Migraine, unspecified, not intractable, without status migrainosus Category: Medical Qualifiers: Migraine type: migraine (< 15 days per month) without aura Status migrainosus presence: without status migrainosus Intractability: not intractable Qualified Code(s): G43.009 - Migraine without aura, not intractable, without status migrainosus (2) Migraine equivalent syndrome: Comment: Routine EEG at [facility] in Sep 2024: [place] [address] [facility] in 2024: Periods of generalized slowing, more pronounced on right side, no symptoms. Code(s): G43.109 - Migraine with aura, not intractable, without status migrainosus Category: Medical Plan Impression recommendations: 24 years old woman with migraine and associated symptomatology. Recommendations: Try sumatriptan 50 mg 1 a day with food as needed Medications: New sumatriptan succinate 50 mg orally one a day as needed PRN; do not exceed 4 doses per 24 hrs 10 tabs 5RF migraine headache 30 days Coding Level of Care Code Est Pt Level 4 (06017) Diagnoses Migraine without aura and without status migrainosus, not intractable G43.009 Migraine type: migraine (< 15 days per month) without aura Status migrainosus presence: without status migrainosus Intractability: not intractable Migraine equivalent syndrome G43.109
--- OUTSIDE RECORDS SUMMARY | 2025-08-12 13:41 | XMS_ITS | Clinical Summary ---
Author Organization [facility] Address [address] [place] [address] Phone Care Team Providers Care Jacket Preparer Name Role Phone Chiquis Hutchinson MD Primary Care Provider [phone] Medications levonorgestrel-e thinyl estradiol (SEASONALE) 0.15 mg-30 mcg (91) per tablet Take 1 tablet by mouth 1 (one) time each day. 91 tablet 1 06/17/2025 Active Surgical History Surgery Date Site/Laterality Comments WISDOM [...] of 3 - 19+ 3-dose series) 2019 HIV Screening 10/22/2022 Hepatitis C Screening 10/22/2022 Social Influencers of Health Screening 10/22/2022 Depression Screening 11/12/2024 Influenza Vaccine (#1) 2025 , 10/26/2022, 09/16/2019, Additional history exists Cervical Cancer Screening: Pap Smear 12/06/2026 12/06/2023 DTaP,Tdap,and Td Vaccines (3 - Td or Tdap) 07/11/2032 07/11/2022, 06/12/2018 RSV Immunization Adult Patients (1 - 1-dose 75+ series) 2075 Meningococcal ACWY Vaccine Completed 06/12/2018 Meningococcal B Vaccine Completed 06/12/2018, 05/07 COVID-19 Vaccine Completed 12/17/2024, 10/07/2022 HIB Vaccines [...] 5 Years) and At-Risk Patients (6 to 49 Years) Aged Out No longer eligible based [...] RESULTING AGENCY - 12/14/2023 4:45 PM EST [id number] THINPREP PAP, IMAGED: NEGATIVE FOR SQUAMOUS INTRAEPITHELIAL LESION AND MALIGNANCY . KENDRA WALKER(ASCP) (CASE ELECTRONICALLY SIGNED 12 14 2023) ADEQUACY: SATISFACTORY ENDOCERVICAL/TRANSFORMATION ZONE COMPONENT ABSENT. SOURCE: THINPREP PAP HPV IF ASCUS, CERVICAL, IMAGED CLINICAL INFORMATION: HPV IF DIAGNOSIS OF ASCUS. [Z01.419] Nina Juan [facility] CYTOLOGY ORDERABLES Final R esult HISTORICAL TESTING LAB RESULTING AGENCY from Last 3 Months or Most Recently Relevant to Health Maintenance [place] [address] [place] [address] [employer] PLAN Care Teams Jacket Preparer Relationship Specialty Start Date End Date Chiquis Hutchinson MD [address] [place] [address] Dr [address] [facility] [place], [place] [phone] PCP - General Internal Medicine 08/16/21
== END 2025-08-12 12:51 | disposition home or self-care (01) ==
LOC: HO.HSM 12:11
PROVIDERS: PCP Internal Medicine; Referring Provider Internal Medicine; Visit Provider Psychiatry & Neurology Neurology
DX: G43.009 Migraine without aura, not intractable, without status migrainosus (principal); G43.109 Migraine with aura, not intractable, without status migrainosus
CPT/HCPCS: 99214

== ENCOUNTER → 2025-08-12 12:11 | Outpatient (BNVA) | payer OTHER, SELFPAY | PROVIDERS: PCP Internal Medicine; Referring Provider Internal Medicine; Visit Provider Psychiatry & Neurology Neurology | DX: G43.009 Migraine without aura, not intractable, without status migrainosus (principal); G43.109 Migraine with aura, not intractable, without status migrainosus | CPT/HCPCS: 99212 ==

== ENCOUNTER 2025-08-28 10:21 | Outpatient (AMB) | payer OTHER, SELFPAY ==
--- NOTE | 2025-08-28 10:27 | A.OFFPC_ITS ---
Vital Signs 08/28/25 10:28 Height 4 ft 10 in Weight 140 lb BMI 29.3 BP 126/80 Blood Pressure Location Lt brachial Position Sitting Pulse 110 H Pulse Source Pulse Oximeter Temp 97.3 F Temp Source Temporal Artery Scan Pulse Oximetry (%) 98 Oxygen Delivery Method Room Air Intake Visit Reasons: ANNUAL Intake Note: Patient is here today for a physical. Material Manager Required: No Technology Applications Engineer: Not Required per policy Accompanied by: Self / Same As Patient Allergies No Known Allergies Allergy (Verified 08/28/25 10:31) Medication List - Last Reconciled 08/28/25 by Chiquis Hutchinson MD albuterol sulfate 2.5 mg (3 mL) inhalation QID PRN albuterol sulfate 90 mcg/actuation 2 puffs inhalation Q4-6H PRN atomoxetine 40 mg PO QAM buspirone 15 mg PO BID cetirizine 10 mg PO DAILY PRN cholecalciferol (vitamin D3) 25 mcg PO DAILY levonorgestrel-ethinyl estrad 0.15 mg-30 mcg (91) 1 tab PO DAILY sumatriptan succinate 50 mg orally one a day as needed PRN; do not exceed 4 doses per 24 hrs 30 days Tobacco use date assessed: 08/28/25 Dental Screening Dental Screen Date: 12/10/24 [facility] Medical History (Updated 08/12/25 @ 12:53 by Rubi Rojas MD) Migraine Obesity (BMI 30-39.9) Anemia Asthma Surgical History H/O wisdom tooth extraction Family History (Updated 08/28/25 @ 10:56 by Chiquis Hutchinson MD) Maternal Grandmother Myocardial infarct Paternal Grandfather CAD (coronary artery disease) Mother No problems noted. Father Alcohol abuse Sister No problems noted. Paternal Uncle CAD (coronary artery disease) Maternal Uncle CAD (coronary artery disease) Social History Household Members: None Housing: Apartment Alcohol intake: current Comment: 3x a year 2 drinks Patient Tobacco Use Status: Never used Tobacco Years Smoked: pot smoking e-Cigarette/Vaping Use: Never Used Second Hand Smoke Exposure: No Substance Use Type: Marijuana service: No Current occupational status: employed Cognitive needs: No Hearing needs: No Vision needs: No Questionnaire PHQ-9 Over the last 2 weeks, how often have you been bothered by any of the following problems? 1. Little interest or pleasure in doing things: not at all 2. Feeling down, depressed, or hopeless: not at all 3. Trouble falling or staying asleep, or sleeping too much: several days 4. Feeling tired or having little energy: not at all 5. Poor appetite or overeating: not at all 6. Feeling bad about yourself - or that you are a failure or have let yourself or your family down: not at all 7. Trouble concentrating on things, such as reading the newspaper or watching television: several days 8. Moving or speaking so slowly that other people could have noticed. Or the opposite - being so fidgety or restless that you have been moving around a lot more than usual: several days 9. Thoughts that you would be better off or of hurting yourself in some way: not at all Total score: 3 Depression Screening Interpretation: Positive Depression Screening Done: Yes Source: Developed by Drs. Davi Kaur, Lucy Peraza, Jonathan Beard and colleagues, with an educational eric from [employer]. Thrive Questionnaire Date Thrive assessed: 12/10/24 I am a: Patient What is your living situation today?: I have a steady place to live Within the past 12 months, did the food you bought not last and you didn't have the money to get more?: Sometimes True Within the past 12 months, did you worry whether your food would run out before you got money to buy more?: Never true Do you have trouble paying for medicines?: No Do you have trouble getting transportation to medical appointments?: No Do you have trouble paying your heating and electricity bill?: I choose not to answer this question Do you have trouble taking care of your child, family member or friend?: No Do you have trouble with day-to-day activities such as bathing, preparing meals, shopping, managing finances, etc.?: No Are you currently unemployed and looking for a job?: No Are you interested in more education?: Yes Please select the resources that you would like help with: Education and None Currently or been in a relationship where the following occur: No concerns reported THRIVE Score: 1 AUDIT C Alcohol Use Questionnaire (AUDIT-C) 1. How often do you have a drink containing alcohol?: Monthly or less 2. How many drinks containing alcohol do you have on a typical day when you are drinking?: 1 or 2 3. How often do you have six or more drinks on one occasion?: Never Total Score: 1 ADEN-7 AMB Questionnaire ADEN-7 Date ADEN - 7 assessed: 12/10/24 Feeling nervous, anxious, or on edge: 1 = Several days Not being able to stop or control worryin = Not at all Worrying too much about different things: 1 = Several days Trouble relaxin = Several days Being so restless that it is hard to sit still: 1 = Several days Becoming easily annoyed or irritable: 0 = Not at all Feeling afraid as if something awful might happen: 1 = Several days Total ADEN-7 score (0-4 normal; 5-9 mild; 10-14 moderate; 15-21 severe): 5 Source: Developed by Drs. Davi Kaur, Lucy Peraza, Jonathan Beard and colleagues, with an educational eric from [employer]. Review of Systems Const Denies poor appetite and Denies weakness Eyes Denies no additional complaints ENT Reports Normal hearing present, Denies dizziness, Denies nasal congestion, Denies tinnitus and Denies sore throat Card Denies chest pain, Denies syncope, Denies rapid heart rate and Denies dyspnea Resp Denies cough and Denies dyspnea GI Denies change in stool character, Reports constipation, Denies diarrhea, Denies nausea and Denies vomiting Denies urinary frequency, Denies difficulty voiding and Denies dysuria Neuro Reports Normal hearing present, Denies confusion, Denies dizziness, Denies syncope and Denies weakness Psych Denies confusion Physical exam (Primary Care) Vital Signs: Last Vital Signs Temp 97.3 F 08/28/25 10:28 Pulse 110 H 08/28/25 10:28 BP 126/80 08/28/25 10:28 Pulse Ox 98 08/28/25 10:28 Oxygen Delivery Method Room Air 08/28/25 10:28 BMI result Body Mass Index 29.3 Tobacco/Smoking Status: Tobacco use Status Tobacco use date assessed 08/28/25 08/28/25 10:33 Patient Tobacco Use Status Never used Tobacco 08/28/25 10:33 e-Cigarette/Vaping Use Never Used 08/28/25 10:33 PHQ-9: PHQ-9 Score PHQ-9: Total score 3 08/28/25 10:51 Depression Screening Interpretation: Positive Thrive Assessment: Date of Thrive Assessment Date Thrive assessed 12/10/24 08/28/25 10:33 Currently or been in a relationship where the following occur: No concerns reported Const General: alert and awake; No confusion Orientation/consciousness: No confusion HENMT Head: Yes normocephalic Ears: external ears normal and TM's normal bilaterally Face and sinus: Yes normal facial exam Mouth: moist mucous membranes Throat: Yes tonsils normal Eyes Conjunctivae: conjunctivae normal Pupils: Equal, round and reactive pupils present and Pupil accommodation reflex normal Direct Ophthalmoscopy: normal light reflex Neck Neck: No lymphadenopathy Thyroid: Thyroid normal Chest Chest palpation & inspection: normal inspection of the chest Resp Effort & Inspection: normal respiratory effort and no audible wheezes Auscultation: clear to auscultation bilaterally, no crackles, no wheezes and lung sounds not diminished Cardio Rate: regular rate Rhythm: regular rhythm Peripheral pulses: radial pulses present and dorsalis pedis present GI Palpation (GI): no masses Auscultation: normal bowel sounds and normoactive bowel sounds Rectal Exam - Female: deferred Skin General skin exam: no rashes or lesions noted Rashes: no rashes Neuro General: deep tendon reflexes 2+ bilaterally and No confusion Cranial nerves: Yes Equal, round and reactive pupils present, Yes Midline tongue present, Yes Normal hearing present and Yes Ability to bilaterally elevate shoulders present Cognition (Neuro): normal cognition Gait exam (Neuro): Normal gait present Motor exam (neuro): 5/5 motor strength present throughout Deep tendon reflexes (DTR's): Right brachioradialis reflex intensity grade: 2+, Left brachioradialis reflex intensity grade: 2+, Right patellar reflex intensity grade: 2+ and Left patellar reflex intensity grade: 2+ Extrem General: No edema Coding Level of Care Code Est Pt Prev Care 18-39y(73197) Diagnoses Annual physical exam Z00.00 Mild intermittent asthma without complication J45.20 Asthma complication type: uncomplicated Asthma persistence: intermittent Asthma severity: mild Migraine without aura and without status migrainosus, not intractable G43.009 Intractability: not intractable Migraine type: migraine (< 15 days per month) without aura Status migrainosus presence: without status migrainosus Overweight (BMI 25.0-29.9) E66.3 Generalized anxiety disorder F41.1 Assessment & Plan Assessment & Plan (1) Annual physical exam: Code(s): Z00.00 - Encounter for general adult medical examination without abnormal findings Category: Medical Plan: Patient is advised to eat healthy, keep well hydrated, keep active and have adequate sleep. (2) Asthma: Code(s): J45.909 - Unspecified asthma, uncomplicated Category: Medical Qualifiers: Asthma complication type: uncomplicated Asthma persistence: intermittent Asthma severity: mild Qualified Code(s): J45.20 - Mild intermittent asthma, uncomplicated Plan: Patient on albuterol inhaler as needed (3) Migraine: Comment: Meds tried: Excedrin, sumatriptan, allergic to Motrin, Code(s): G43.909 - Migraine, unspecified, not intractable, without status migrainosus Category: Medical Qualifiers: Intractability: not intractable Migraine type: migraine (< 15 days per month) without aura Status migrainosus presence: without status migrainosus Qualified Code(s): G43.009 - Migraine without aura, not intractable, without status migrainosus Plan: Continue with Neurology on sumatriptan (4) Overweight (BMI 25.0-29.9): Code(s): E66.3 - Overweight Category: Medical Plan: Diet and exercise (5) Generalized anxiety disorder: Comment: [facility] children counselor Code(s): F41.1 - Generalized anxiety disorder Category: Medical Plan: Continue with counseling and therapy placed on atomoxetine, buspirone Plan History of Present Illness The patient is a 24-year-old female presenting for a physical examination and management of chronic conditions. She has a history of asthma, managed with an albuterol inhaler as needed, partic ularly during winter. Iron deficiency anemia, generalized anxiety disorder, and ADHD are managed with atomoxetine and buspirone, alongside counseling. The patient experiences migraines, treated with sumatriptan, and is under neurology care. She has dermatofibroma and skin tags, with dermatology advising against removal unless desired for cosmetic reasons. Family history includes heart disease, with multiple relatives affected. She reports occasional heartburn, typically after late meals. Her last blood work showed normal results except for low vitamin D, for which increased intake is advised. Health Maintenance - Vaccination: Flu shot recommended and administered during the visit - Vitamin D supplementation advised due to low levels - Pneumonia vaccination discussed for asthma management, to be considered in future visits Social History - Employment: Works at [employer], exposed to many people, increasing risk of infections - Substance use: Occasional use of cannabis, prefers edibles over smoking due to asthma - Alcohol use: Consumes alcohol infrequently, mainly during holidays Review of Systems - Respiratory: Reports dyspnea during winter, denies frequent use of inhaler - Neurological: Reports migraines, denies significant side effects from medication - Gastrointestinal: Reports occasional heartburn after late meals, denies nausea or vomiting - Genitourinary: Denies dysuria, reports nocturia once occasionally - Musculoskeletal: Denies joint pain or swelling Physical Exam General: Cooperative, overweight, healthy appearing, comfortable, no acute distress and well developed Orientation: Patient oriented x3 Limitations: No limitations Head: Normal to inspection Ears: Hearing grossly normal bilaterally, but ear wax present, approximately 80% occluded Nose: Normal external nose present Face and sinus: Normal facial exam Eyes: Appearance normal, both eyes and all related structures Neck: Normal visual inspection and Yes full ROM Respiratory: Normal respiratory effort and able to speak in complete sentences. Clear to auscultation bilaterally Cardiovascular: Regular rate and rhythm. Normal S1 and S2 GI: Normal to inspection. Soft to palpation and nontender Skin: Dermatofibroma of the lower extremity, skin tags present Neuro: Patient oriented x3 Extremities: Normal to inspection Results - Labs: Normal blood count, electrolytes, renal function, blood sugar, and iron levels; low vitamin D noted Plan Patient was informed and verbally consented to the use of an ambient scribe for clinic note documentation during this visit. 1. Asthma The patient is advised to continue using the albuterol inhaler as needed, particularly during winter months when symptoms are exacerbated. If usage increases to more than a couple of times a week, consideration for controller medications is recommended. 2. Iron Deficiency Anemia The patient's iron levels are currently normal, and no specific interventions are required at this time. 3. Generalized Anxiety Disorder The patient is advised to continue with counseling and therapy, and medication management with atomoxetine and buspirone. 4. Attention-Deficit/Hyperactivity Disorder (Adhd) Management includes continuation of atomoxetine and regular follow-up to monitor symptoms. 5. Migraine The patient is advised to continue treatment with sumatriptan as needed, with follow-up care under neurology. 6. Dermatofibroma Dermatology has advised against removal unless desired for cosmetic reasons, as recurrence is likely without surgical intervention. 7. Skin Tags Dermatology has advised that skin tags are benign and do not require removal unless for cosmetic reasons. 8. Preventative Care: Flu Vaccination The patient received a flu vaccination during the visit. Discussion Notes During the visit, I discussed the management of asthma, emphasizing the use of the albuterol inhaler as needed and the potential need for controller medications if usage increases. We reviewed the patient's current medications for anxiety and ADHD, and I advised continuation of counseling and therapy. The patient was informed about the effectiveness of sumatriptan for migraines and encouraged to continue follow-up with neurology. I also discussed the benign nature of dermatofibroma and skin tags, advising against removal unless for cosmetic reasons. Preventative care measures included administering a flu vaccination and discussing the potential need for a pneumonia shot in future visits. Patient Instructions - Use albuterol inhaler as needed, especially during winter. Report if usage exceeds a couple of times a week. - Continue current medications for anxiety and ADHD, and attend counseling sessions. - Take sumatriptan for migraines as needed and follow up with neurology. - Increase vitamin D intake, especially during colder months. - Maintain regular physical activity and a balanced diet to manage weight and overall health. - Receive flu vaccination today and consider pneumonia vaccination in future visits.
[2025-08-28 10:28] VITALS: BP 126/80; PULSE 110; TEMP 36.3; O2SAT 98; BMI 29.3
--- OUTSIDE RECORDS SUMMARY | 2025-08-28 12:20 | XMS_ITS | Clinical Summary ---
Author Organization [facility] Address [address] [place] [address] Phone Care Team Providers Care Slitter Helper Name Role Phone Chiquis Hutchinson MD Primary Care Provider [phone] Medications levonorgestrel-e thinyl estradiol (SEASONALE) 0.15 mg-30 [...] RESULTING AGENCY - 12/14/2023 4:45 PM EST [id number] THINPREP PAP, IMAGED: NEGATIVE FOR SQUAMOUS INTRAEPITHELIAL LESION AND MALIGNANCY . KENDRA WALKER(ASCP) (CASE ELECTRONICALLY SIGNED 12 14 2023) ADEQUACY: SATISFACTORY ENDOCERVICAL/TRANSFORMATION ZONE COMPONENT ABSENT. SOURCE: THINPREP PAP HPV IF ASCUS, CERVICAL, IMAGED CLINICAL INFORMATION: HPV IF DIAGNOSIS OF ASCUS. [Z01.419] Nina Juan [facility] CYTOLOGY ORDERABLES Final R esult HISTORICAL TESTING LAB RESULTING AGENCY from Last 3 Months or Most Recently Relevant to Health Maintenance [place] [address] [address] HEALTH PLAN Care Teams Slitter Helper Relationship Specialty Start Date End Date Chiquis Hutchinson MD [address] [place] [address] Dr [address] [facility] [place], [place] [id number] PCP - General Internal Medicine 08/16/21
== END 2025-08-28 11:17 | disposition home or self-care (01) ==
LOC: HO.HMCH 10:22
PROVIDERS: PCP Internal Medicine; Visit Provider Internal Medicine
DX: Z00.00 Encounter for general adult medical examination without abnormal findings (principal); J45.20 Mild intermittent asthma, uncomplicated; G43.009 Migraine without aura, not intractable, without status migrainosus; E66.3 Overweight; F41.1 Generalized anxiety disorder

== ENCOUNTER → 2025-08-28 10:21 | Outpatient (BNVA) | payer OTHER, SELFPAY | PROVIDERS: PCP Internal Medicine; Visit Provider Internal Medicine | DX: Z00.00 Encounter for general adult medical examination without abnormal findings (principal); J45.20 Mild intermittent asthma, uncomplicated; G43.009 Migraine without aura, not intractable, without status migrainosus; E66.3 Overweight; F41.1 Generalized anxiety disorder; F90.9 Attention-deficit hyperactivity disorder, unspecified type; G43.909 Migraine, unspecified, not intractable, without status migrainosus; L91.8 Other hypertrophic disorders of the skin; Z68.29 Body mass index [BMI] 29.0-29.9, adult | CPT/HCPCS: 99395 ==